=== PATIENT | male | born 1985 | race Caucasian/White ===

== ENCOUNTER 2019-06-14 17:41 | Emergency (ER) | payer OTHER ==
--- NOTE | 2019-06-14 18:06 | PDOC ---
History of Present Illness - General Chief Complaint: Allergic Reaction Stated Complaint: ALLERGIC REACTION Time Seen by Provider: 06/14/19 17:57 - History of Present Illness Initial Comments: Mr. 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 Reports that around 4:30pm he started having lip and throat swelling, and itchiness and hives over his right hand and anterior chest. He carries an epi pen but did not use it. His colleagues gave him 50 benadryl IV and zofran in the ambulance. Denies shortness of breath/wheezing. Denies chest pain. Denies swelling of the legs. Denies fever/chills. Pt reports that he started on pro-hormone, liver blockers, and pro-testosterone around 1 month ago but has not had a reaction since. Past History - Past Medical History Allergies/Adverse Reactions: Allergies Allergy/AdvReac Type Severity Reaction Status Date / Time bee venom protein (honey bee) Allergy Verified 06/14/19 17:44 CVA: No COPD: No - Psycho Social/Smoking Cessation Hx Smoking History: Never smoked Review of Systems - Review of Systems Comments:: GENERAL/CONSTITUTIONAL: No fever or chills. No weakness._ HEAD, EYES, EARS, NOSE AND THROAT: Reports throat and lip swelling. CARDIOVASCULAR: No chest pain. Reports shortness of breath. RESPIRATORY: Denies cough, hemoptysis_ GASTROINTESTINAL: No nausea, vomiting, diarrhea or constipation._ GENITOURINARY: No dysuria, frequency, or change in urination._ MUSCULOSKELETAL: No joint or muscle swelling or pain. No neck or back pain._ SKIN: Reports hives and swelling over right hand and anterior chest NEUROLOGIC: No headache, vertigo, loss of consciousness, or change in strength/ sensation._ ENDOCRINE: No increased thirst. No abnormal weight change_ HEMATOLOGIC/LYMPHATIC: No anemia, easy bleeding, or history of blood clots._ *Physical Exam - Vital Signs Last Vital Signs Temp Pulse Resp BP Pulse Ox 97.5 F L 78 16 124/88 99 06/14/19 17:45 06/14/19 17:45 06/14/19 17:45 06/14/19 17:45 06/14/19 17:45 - Physical Exam GENERAL: Awake, alert, and oriented to person/place/time, in no acute distress_ HEAD: No signs of trauma, normoc ephalic, atraumatic _ EYES: PERRLA, EOMI, sclera anicteric, conjunctiva clear_ ENT: Airway patent, hearing grossly normal, nares patent, oropharynx clear without exudates. No uvular deviation. Moist mucosa_ NECK: Normal ROM, supple, no lymphadenopathy, JVD, or masses_ LUNGS: No distress, speaks in full sentences, clear to auscultation bilaterally , no wheezes appreciated bilaterally HEART: Regular rate and rhythm, normal S1 and S2, no murmurs appreciated, peripheral pulses normal and equal bilaterally._ ABDOMEN: Soft, nontender, normoactive bowel sounds. No guarding, no rebound. No masses_ EXTREMITIES: Normal inspection, Normal range of motion, no edema. No clubbing or cyanosis_ NEUROLOGICAL: Cranial nerves II through XII grossly intact. Normal speech, normal gait, no focal sensorimotor deficits _ SKIN: Diffuse urticaria over right palmar area and bilateral anterior chest. 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 Unsure of trigger or cause. Airway patent and saturating well on room air. -pepcid -solu medrol 06/14/19 19:35 Pt reassessed. Reports continued itching over his right hand and warmth of his cheeks. 06/14/19 20:29 Pt reassessed after meds. Reports that he is feeling much better and the hives have mildly improved. Plan to d/c home with instructions to stop supplements to see if they help with his symptoms. All questions answered. Pt verbalized agreement and understanding with plan. Return precautions given. Discharge - Discharge Information Problems reviewed: Yes Clinical Impression/Diagnosis: Allergic angioedema Qualifiers: Encounter type: initial encounter Qualified Code(s): T78.3XXA - Angioneurotic edema, initial encounter Condition: Stable Disposition: HOME - Admission No - Follow up/Referral Referrals: ON STAFF,NOT [Primary Care Provider] - - Patient Discharge Instructions Patient Printed Discharge Instructions: DI for General Allergic Reactions Additional Instructions: Please make sure you keep your epi pen refilled. If you experience any new, worsening, or concerning symptoms, including throat swelling, lip swelling, difficulty breathing, wheezing, hives, or any other concern, please return to the emergency department. - Post Discharge Activity
[2019-06-14] MEDS ORDERED: FAMOTIDINE 20 MG/50 ML IVPB 20 MG/50 ML MG IVPB ONE ×2 (18:16→18:59)
[2019-06-14] MEDS ORDERED: methylPREDNISolone NA SUCC 40 MG/1 ML VIAL IVPUSH ONE (18:16)
[2019-06-14 18:35] VITALS: BMI 26.6
--- NOTE | 2019-06-14 18:43 | PDOC ---
Documentation entered by Agnes Art SCRIBE, acting as scribe for Adri Iqbal MD. Adri Iqbal MD: This documentation has been prepared by the Kaleyn romano Brenda, SCRIBE, under my direction and personally reviewed by me in its entirety. I confirm that the documentation accurately reflects all work, treatment, procedures, and medical decision making performed by me. Attending Attestation - Resident Resident Name: Vito Hu - ED Attending Attestation I have performed the following: I have examined & evaluated the patient, The case was reviewed & discussed with the resident, I agree w/resident's findings & plan, Exceptions are as noted - HPI HPI: 06/14/19 18:11 The patient is a 33 year old male with a significant PMH of who presents to the ED for evaluation of possible allergic reaction. Patient reports having itchy hands since 4:30pm this afternoon, which looked like hives which later progressed onto his upper extremities and lower extremities. Patient began to feel his throat itching, which prompted his arrival to the ED BIBA. He notes he was given 50 mg of Benadryl en route. He reports that he last ate a Deli sandwich at 12:00pm. Patient is an EMS worker. Allergies: Bee venom protein Surgical Hx: Social Hx: PCP: Dr. Lyon ([facility]) - Physicial Exam PE: 06/14/19 18:35 GENERAL: The patient is in no acute distress. ENT: Ears normal, nares patent, oropharynx clear without exudates. Moist mucous membranes. Uvula is midline, no edema NECK: Normal range of motion, supple LUNGS: Breath sounds equal, clear to auscultation bilaterally. No wheezes, and no crackles. HEART:Regular rate and rhythm, normal S1 and S2 without murmur, rub or gallop. ABDOMEN: Soft, nontender, normoactive bowel sounds. EXTREMITIES: Normal range of motion, no edema. NEUROLOGICAL: Cranial nerves II through XII grossly intact. Normal speech. No focal neurological deficits. SKIN: Intertriginous urticarial rashes, no other urticarial lesions noted n - Medical Decision Making 06/14/19 18:37 33-year-old male with a history of anaphylaxis to bee venom who presents emergency depart with a complaint of an allergic reaction Patient largely has adhered to his typical routine Only difference in his routine was eating a sandwich from a different place than he typically buys food from (much earlier in the afternoon) Patient took Benadryl prior to arrival in the ER He did not use his EpiPen Patient states he feels better We will give Solu-Medrol Pepcid Reassess Discharge home Follow-up with conveyor installer Speech remains clear, no wheezing mild erythema noted on the hands and upper extremities Clinical impression: Allergic Reaction, initial presentation
[2019-06-14] MEDS ORDERED: methylPREDNISolone NA SUCC 125 MG/2 ML VIAL ONE (18:59)
[2019-06-14] MEDS ORDERED: SODIUM CHLORIDE 0.9% 500 ML INFUS.BAG IV ONE (19:18)
[2019-06-14 23:38] VITALS: BP 135/79; PULSE 91; TEMP 98.6
== END 2019-06-14 20:41 | disposition home or self-care (01) ==
LOC: SUPCPDRO 17:41 → JER 17:41
DX: T78.3XXA Angioneurotic edema, initial encounter (principal); Z91.030 Bee allergy status; Z88.8 Allergy status to other drugs, medicaments and biological substances
CPT/HCPCS: 99282-25